=== PATIENT | female | born 1990 | race Caucasian/White ===

== ENCOUNTER 2022-03-08 08:59 | Day surgery (SDC) | payer OTHER ==
[2022-03-07 13:31] LABS: COVID AG,FIA SOURCE NASAL SWAB
[~2022-03-08] VITALS: Ht 170.2 cm; Wt 165.0 kg
[~2022-03-08 08:59] MED LIST: SODIUM CHLORIDE 0.9% 1,000 ML IV ONE; SODIUM CHLORIDE 0.9% 1,000 ML ONE
[2022-03-08] MEDS ORDERED: LIDOCAINE/PF 2% 5 ML SYRINGE IVP ONE (09:00)
[2022-03-08] MEDS ORDERED: PROPOFOL 1% 20 ML VIAL IVP ONE (09:00)
[2022-03-08] MEDS ORDERED: OXYGEN THERAPY IH SCH (10:45)
== END 2022-03-08 12:05 | disposition home or self-care (01) ==
LOC: SURGERY 08:59
PROVIDERS: ATTEND Specialist
DX: R19.4 Change in bowel habit (principal); K20.90 Esophagitis, unspecified without bleeding; G47.33 Obstructive sleep apnea (adult) (pediatric); F20.9 Schizophrenia, unspecified; Z79.899 Other long term (current) drug therapy; Z98.890 Other specified postprocedural states; Z20.822 Contact with and (suspected) exposure to COVID-19
CPT/HCPCS: 87426; 45380; 43239; 84703; 36415; C9803; C1769; J2704; J3490; J7030